=== PATIENT | male | born 1985 | race Hispanic/Latino ===

== ENCOUNTER 2022-02-17 21:26 | Emergency (ER) | payer SELFPAY ==
[~2022-02-17] VITALS: Ht 165.1 cm; Wt 91.2 kg
[2022-02-17] MEDS ORDERED: KETOROLAC TROMETHAMINE 30 MG/ML VIAL IM STA (22:00)
[2022-02-17] MEDS ORDERED: KETOROLAC TROMETHAMINE 30 MG/ML VIAL ONE (22:21)
[2022-02-17] MEDS ORDERED: CYCLOBENZAPRINE5 MG PO (23:44)
[2022-02-17] MEDS ORDERED: IBUPROFEN600 MG PO (23:44)
[2022-02-18 00:01] VITALS: BP 140/88
== END 2022-02-18 00:01 | disposition home or self-care (01) ==
LOC: FSED 21:31
DX: S39.012A Strain of muscle, fascia and tendon of lower back, initial encounter (principal); M53.86 Other specified dorsopathies, lumbar region; X50.1XXA Overexertion from prolonged static or awkward postures, initial encounter; Y99.0 Civilian activity done for income or pay
CPT/HCPCS: 74176; 81003; 96372; 99282; J1885